=== PATIENT | female | born 1980 | race Caucasian/White ===

== ENCOUNTER 2017-07-04 12:11 | Emergency (ER) | payer OTHER ==
[~2017-07-04] VITALS: Ht 170.2 cm; Wt 111.5 kg
[2017-07-04] MEDS ORDERED: SERT100T12 PO (12:17)
[2017-07-04] MEDS ORDERED: ChlordiazePOXIDE HCL 25 MG CAPSULE PO ONE (13:45)
[2017-07-04 14:31] VITALS: BP 122/74
== END 2017-07-04 15:29 | disposition home or self-care (01) ==
LOC: EMS 12:14
DX: Z76.0 Encounter for issue of repeat prescription (principal); F10.980 Alcohol use, unspecified with alcohol-induced anxiety disorder; R11.0 Nausea; R03.0 Elevated blood-pressure reading, without diagnosis of hypertension; F17.210 Nicotine dependence, cigarettes, uncomplicated; Z88.5 Allergy status to narcotic agent; Z79.899 Other long term (current) drug therapy
CPT/HCPCS: 99283

== ENCOUNTER 2023-05-04 11:32 | Emergency (ER) | payer MEDICAID, OTHER ==
[~2023-05-04] VITALS: Ht 170.2 cm; Wt 111.5 kg
[~2023-05-04 11:32] MED LIST: SERT-162 PO
[2023-05-04 11:41] VITALS: TEMP 98.3
[2023-05-04] MEDS ORDERED: NALOXONE HCL 1 MG/ML 2 ML SYRINGE IVP ONE ×2 (14:45→18:45)
[2023-05-04 15:20] LABS: ALCOHOL, URINE DRUG SCREEN NEGATIVE (NEGATIVE); AMPHET/METH SCREEN,URINE NEGATIVE (NEGATIVE); BARBITURATE SCREEN, URINE NEGATIVE (NEGATIVE); BENZODIAZEPINES SCREEN,URINE POSITIVE (NEGATIVE); CANNABINOID SCREEN,URINE POSITIVE (NEGATIVE); COCAINE SCREEN,URINE NEGATIVE (NEGATIVE); METHADONE SCREEN, URINE POSITIVE (NEGATIVE); OPIATE SCREEN,URINE NEGATIVE (NEGATIVE); PHENCYCLIDINE SCREEN,URINE NEGATIVE (NEGATIVE)
[2023-05-04 15:26] LABS: PH,URINE DRUG SCREEN 6.5 (5.0-8.0)
[2023-05-04 19:21] VITALS: BP 103/70; PULSE 68; RESP 16
== END 2023-05-04 20:00 | disposition home or self-care (01) ==
LOC: EMS 11:42
DX: R41.82 Altered mental status, unspecified (principal); F10.20 Alcohol dependence, uncomplicated; F17.210 Nicotine dependence, cigarettes, uncomplicated; Z98.890 Other specified postprocedural states; Z91.013 Allergy to seafood; Z88.8 Allergy status to other drugs, medicaments and biological substances
CPT/HCPCS: 99285; 96374; 82948; 80307; J2310